=== PATIENT | female | born 1950 | race Hispanic/Latino ===

== ENCOUNTER → 2019-05-17 | Outpatient (CLI) | payer MEDICARE | END | disposition home or self-care (01) | LOC: RAH 11:17 | PROVIDERS: ATTEND Family Medicine | DX: Z12.31 Encounter for screening mammogram for malignant neoplasm of breast (principal) | CPT/HCPCS: 77067 ==

== ENCOUNTER 2020-07-13 12:47 | Inpatient (IN) | payer OTHER, MEDICARE ==
[~2020-07-13] VITALS: Ht 152.4 cm; Wt 93.7 kg
[2020-07-13] MEDS ORDERED: ALBUTEROL INHALER 90MCG/INH IH ONE (13:08)
[2020-07-13] MEDS ORDERED: ACETAMINOPHEN WITH CODEINE 1 TAB TAB ONE (13:09)
[2020-07-13] MEDS ORDERED: CEFTRIAXONE 1G VIAL ONE (13:09)
[2020-07-13 13:10] LABS: ABG BASE EXCESS 2.3 mmol/L (-2.0-3.0); ABG HCO3 24.2 mmol/L (21.0-28.0); ABG OXYGEN SATURATION 85.7 % (95.0-99.0); ABG PCO2 30 mmHg (32-45)
[2020-07-13] MEDS ORDERED: 0.9%NACL 50ML 50 ML IV ONE (13:10)
[2020-07-13] MEDS ORDERED: AZITHROMYCIN 250 MG TABLET PO ONE (13:10)
[2020-07-13 13:28] LABS: BASOPHILS % (AUTO) 0.2 % (0.0-5.0); EOSINOPHILS % (AUTO) 0.2 % (0.0-8.0); HEMATOCRIT 37.3 % (36-48); LYMPHOCYTES % (AUTO) 3.4 % (21.0-51.0); MEAN CORPUSCULAR HGB CONC 35.1 g/dL (32.0-36.0); MEAN CORPUSCULAR VOLUME 85.6 fL (79-99); MONOCYTES % (AUTO) 3.5 % (3.0-13.0); NEUTROPHILS % (AUTO) 92.2 % (40.0-77.0); PLATELET COUNT (AUTO) 280 K/uL (130-400); RED BLOOD CELL COUNT(AUTO) 4.36 MIL/uL (4.00-5.50); RED CELL DISTRIBUTION WIDTH 13.3 % (11.0-15.5); WHITE BLOOD COUNT (AUTO) 9.7 K/uL (4.8-10.8)
[2020-07-13 13:38] LABS: CREATININE 0.8 mg/dL (0.5-1.5); POTASSIUM 3.3 mmol/L (3.5-5.1)
[2020-07-13 13:43] LABS: ALBUMIN 2.3 g/dL (3.5-5.0); BILIRUBIN,TOTAL 0.7 mg/dL (0.2-1.0); TOTAL PROTEIN, SERUM 7.4 g/dL (6.0-8.3)
[2020-07-13] MEDS ORDERED: DEXAMETHASONE SOD PHOSPHATE 10MG/ML 1ML VIAL ONE (13:43)
[2020-07-13 13:53] LABS: INR 1.12 (0.85-1.15); PROTHROMBIN TIME 11.9 SEC (9.6-11.6)
[2020-07-13 13:54] LABS: PARTIAL THROMBOPLASTIN TIME 25.5 SEC (26.3-35.5)
[2020-07-13 14:22] LABS: B-TYPE NATRIURETIC PEPTIDE 78 pg/mL (0-100)
[2020-07-13] MEDS: CEFTRIAXONE 1G VIAL IVP SCH (14:45)
[2020-07-13] MEDS ORDERED: ACETAMINOPHEN 325 MG TAB PO PRN (14:45)
[2020-07-13] MEDS ORDERED: AZITHROMYCIN 500MG+NS 250ML 250 ML IV SCH (14:45)
[2020-07-13] MEDS ORDERED: ONDANSETRON 4MG INJ IVP PRN (14:45)
[2020-07-13] MEDS ORDERED: DEXTROSE 50%-WATER 50 ML DISP.SYRIN IV PRN (15:00)
[2020-07-13] MEDS ORDERED: GLUCAGON 1MG KIT 1 MG ML IM PRN (15:00)
[2020-07-13 15:46] LABS: CRP QUANTITATIVE 353.5 mg/L (0.00-9.0)
[2020-07-13] MEDS: INSULIN HUMULIN R 100 UNIT/ML 3ML SQ SCH ×2 (16:30→21:00)
[2020-07-13 16:33] LABS: APPEARANCE,URINE Clear (CLEAR); BILIRUBIN,URINE Small (NEGATIVE); COLOR,URINE Dark Yellow (YELLOW); GLUCOSE, URINE (UA) TRACE mg/dL (NEGATIVE); KETONES,URINE 40 mg/dL (NEGATIVE); LEUKOCYTE ESTERASE ,URINE Small (NEGATIVE); NITRATE,URINE Negative (NEGATIVE); OCCULT BLOOD,URINE Moderate (NEGATIVE); PROTEIN,URINE POS 2+ mg/dL (NEGATIVE)
[2020-07-13 16:50] LABS: BACTERIA,URINE Few /HPF (None Seen); RBC,URINE None Seen /HPF (0-1)
[2020-07-13 16:51] VITALS: BP 135/78
[2020-07-13] MEDS ORDERED: POTASSIUM CHLORIDE 20MEQ/100ML 100 ML IV PRN (18:00)
[2020-07-13] MEDS ORDERED: KCL 20 MEQ ERTAB PO PRN (18:00)
[2020-07-13] MEDS ORDERED: POTASSIUM CHLORIDE 10% ELIXIR 20 MEQ/15 ML UDCUP PO PRN (18:00)
[2020-07-13] MEDS ORDERED: LIDOCAINE HCL-MPF 1% 2ML VIAL IV PRN (18:00)
[2020-07-13] MEDS ORDERED: INSULIN HUMULIN R 100 UNIT/ML 3ML ONE ×2 (18:14→18:17)
[2020-07-13] MEDS: FAMOTIDINE 20MG TAB PO SCH (21:00)
[2020-07-13] MEDS ORDERED: FAMOTIDINE 20MG TAB ONE (21:16)
[2020-07-13] MEDS ORDERED: PHARMACY COMMUNICATION MISC SCH (21:45)
[2020-07-13] MEDS ORDERED: IOHEXOL 350 MG/ML 100ML INFUS..BTL IV ONE (22:42)
[2020-07-13] MEDS ORDERED: ENOXAPARIN SODIUM 80 MG/0.8 ML SQ ONE (23:32)
[2020-07-14] VITALS (8 sets, daily range): BP systolic 138–157; BP diastolic 58–81
[2020-07-14] MEDS ORDERED: ACETAMINOPHEN 325 MG TAB ONE (00:09)
[2020-07-14] MEDS ORDERED: 0.9% NACL 250ML 250 ML IV ONE (01:17)
[2020-07-14] MEDS ORDERED: KCL 20 MEQ ERTAB PO ONE (01:39)
[2020-07-14 04:03] LABS: BASOPHILS % (AUTO) 0.1 % (0.0-5.0); HEMATOCRIT 32.7 % (36-48); LYMPHOCYTES % (AUTO) 6.6 % (21.0-51.0); MEAN CORPUSCULAR HEMOGLOBIN 29.3 pg (27.0-33.0); MEAN CORPUSCULAR HGB CONC 33.9 g/dL (32.0-36.0); MEAN CORPUSCULAR VOLUME 86.3 fL (79-99); MONOCYTES % (AUTO) 4.6 % (3.0-13.0); NEUTROPHILS % (AUTO) 88.3 % (40.0-77.0); PLATELET COUNT (AUTO) 251 K/uL (130-400); RED BLOOD CELL COUNT(AUTO) 3.79 MIL/uL (4.00-5.50); RED CELL DISTRIBUTION WIDTH 13.2 % (11.0-15.5); WHITE BLOOD COUNT (AUTO) 6.7 K/uL (4.8-10.8)
[2020-07-14 04:19] LABS: ALBUMIN 2.3 g/dL (3.5-5.0); BILIRUBIN,TOTAL 0.4 mg/dL (0.2-1.0); CREATININE 0.7 mg/dL (0.5-1.5)
[2020-07-14 04:28] LABS: CRP QUANTITATIVE 492.7 mg/L (0.00-9.0)
[2020-07-14] MEDS: INSULIN HUMULIN R 100 UNIT/ML 3ML SQ SCH ×4 (06:19→21:03)
[2020-07-14] MEDS ORDERED: REMDESIVIR (EUA) 520 200 MG in 0.9% NACL 250ML 250 ML IV ONE (07:00)
[2020-07-14] MEDS ORDERED: COMPOUND IV REFRIGERATED 1 EACH IVSOLN MISC PRN (07:00)
[2020-07-14] MEDS: FAMOTIDINE 20MG TAB PO SCH ×2 (08:31→19:55)
[2020-07-14] MEDS: ENOXAPARIN SODIUM 80 MG/0.8 ML SQ SCH ×2 (08:32→19:56)
[2020-07-14] MEDS ORDERED: ENOXAPARIN SODIUM 40 MG/0.4 ML SYRINGE SQ SCH (09:00)
[2020-07-14] MEDS ORDERED: ENOXAPARIN SODIUM 30 MG/0.3 ML SQ SCH (09:00)
[2020-07-14] MEDS ORDERED: DEXAMETHASONE SOD PHOSPHATE 4 MG/ML 1ML VIAL IVP SCH ×2 (09:00)
[2020-07-14] MEDS: CEFTRIAXONE 1G VIAL IVP SCH (14:08)
[2020-07-14] MEDS: ENOXAPARIN SODIUM 60 MG/0.6 ML SQ SCH (20:58)
[2020-07-15] VITALS (7 sets, daily range): BP systolic 143–168; BP diastolic 51–94
[2020-07-15] MEDS: REMDESIVIR LABS MISC SCH (05:04)
[2020-07-15] MEDS: INSULIN HUMULIN R 100 UNIT/ML 3ML SQ SCH ×4 (06:00→20:48)
[2020-07-15 06:12] LABS: BASOPHILS % (AUTO) 0.2 % (0.0-5.0); EOSINOPHILS % (AUTO) 0.1 % (0.0-8.0); HEMATOCRIT 35.9 % (36-48); LYMPHOCYTES % (AUTO) 6.7 % (21.0-51.0); MEAN CORPUSCULAR HEMOGLOBIN 29.6 pg (27.0-33.0); MEAN CORPUSCULAR HGB CONC 33.7 g/dL (32.0-36.0); MEAN CORPUSCULAR VOLUME 87.8 fL (79-99); MONOCYTES % (AUTO) 4.7 % (3.0-13.0); NEUTROPHILS % (AUTO) 87.3 % (40.0-77.0); PLATELET COUNT (AUTO) 345 K/uL (130-400); RED BLOOD CELL COUNT(AUTO) 4.09 MIL/uL (4.00-5.50); RED CELL DISTRIBUTION WIDTH 13.2 % (11.0-15.5); WHITE BLOOD COUNT (AUTO) 12.2 K/uL (4.8-10.8)
[2020-07-15 06:39] LABS: ALBUMIN 2.2 g/dL (3.5-5.0); BILIRUBIN,TOTAL 0.2 mg/dL (0.2-1.0); CREATININE 0.7 mg/dL (0.5-1.5); CRP QUANTITATIVE 114.1 mg/L (0.00-9.0); POTASSIUM 3.7 mmol/L (3.5-5.1); TOTAL PROTEIN, SERUM 6.6 g/dL (6.0-8.3)
[2020-07-15] MEDS: DEXAMETHASONE SOD PHOSPHATE 4 MG/ML 1ML VIAL IVP SCH (08:17)
[2020-07-15] MEDS: FAMOTIDINE 20MG TAB PO SCH ×2 (08:17→20:46)
[2020-07-15] MEDS: ENOXAPARIN SODIUM 60 MG/0.6 ML SQ SCH ×2 (08:19→20:47)
[2020-07-15] MEDS ORDERED: ATOR10 PO (09:24)
[2020-07-15] MEDS ORDERED: HYDR12.54 PO (09:24)
[2020-07-15] MEDS ORDERED: LISI5TAB21 PO (09:25)
[2020-07-15] MEDS ORDERED: METF-444 PO (09:26)
[2020-07-15] MEDS: REMDESIVIR (EUA) 520 100 MG in 0.9% NACL 250ML 250 ML IV SCH (12:28)
[2020-07-15] MEDS: GUAIFENESIN-DM 200/20 MG 10 ML PO PRN ×2 (12:41→23:38)
[2020-07-15] MEDS: CEFTRIAXONE 1G VIAL IVP SCH (14:11)
[2020-07-15] MEDS: ATORVASTATIN 20 MG TABLET PO SCH (20:46)
[2020-07-16] VITALS (8 sets, daily range): BP systolic 134–174; BP diastolic 62–78
[2020-07-16] MEDS: INSULIN HUMULIN R 100 UNIT/ML 3ML SQ SCH ×4 (05:16→20:20)
[2020-07-16] MEDS: REMDESIVIR LABS MISC SCH (05:17)
[2020-07-16 06:25] LABS: BASOPHILS % (AUTO) 0.1 % (0.0-5.0); EOSINOPHILS % (AUTO) 0.1 % (0.0-8.0); HEMATOCRIT 36.6 % (36-48); LYMPHOCYTES % (AUTO) 11.1 % (21.0-51.0); MEAN CORPUSCULAR HGB CONC 33.1 g/dL (32.0-36.0); MEAN CORPUSCULAR VOLUME 87.8 fL (79-99); NEUTROPHILS % (AUTO) 81.6 % (40.0-77.0); PLATELET COUNT (AUTO) 333 K/uL (130-400); RED BLOOD CELL COUNT(AUTO) 4.17 MIL/uL (4.00-5.50); RED CELL DISTRIBUTION WIDTH 13.2 % (11.0-15.5); WHITE BLOOD COUNT (AUTO) 8.2 K/uL (4.8-10.8)
[2020-07-16 06:44] LABS: ALBUMIN 2.2 g/dL (3.5-5.0); BILIRUBIN,TOTAL 0.3 mg/dL (0.2-1.0); CREATININE 0.7 mg/dL (0.5-1.5); CRP QUANTITATIVE 55.1 mg/L (0.00-9.0); POTASSIUM 3.3 mmol/L (3.5-5.1); TOTAL PROTEIN, SERUM 6.1 g/dL (6.0-8.3)
[2020-07-16] MEDS ORDERED: POTASSIUM CHLORIDE 10% ELIXIR 20 MEQ/15 ML UDCUP PO PRN (07:45)
[2020-07-16] MEDS ORDERED: KCL 20 MEQ ERTAB PO PRN (07:45)
[2020-07-16] MEDS ORDERED: LIDOCAINE HCL-MPF 1% 2ML VIAL IV PRN (07:45)
[2020-07-16] MEDS ORDERED: POTASSIUM CHLORIDE 20MEQ/100ML 100 ML IV PRN (07:45)
[2020-07-16] MEDS: LISINOPRIL 5 MG TABLET PO SCH (08:08)
[2020-07-16] MEDS: ENOXAPARIN SODIUM 100 MG/1 ML SQ SCH ×2 (08:08→20:18)
[2020-07-16] MEDS: HYDROCHLOROTHIAZIDE 25 MG TABLET PO SCH (08:08)
[2020-07-16] MEDS: DEXAMETHASONE SOD PHOSPHATE 4 MG/ML 1ML VIAL IVP SCH (08:08)
[2020-07-16] MEDS: FAMOTIDINE 20MG TAB PO SCH ×2 (08:08→20:18)
[2020-07-16] MEDS: REMDESIVIR (EUA) 520 100 MG in 0.9% NACL 250ML 250 ML IV SCH (13:20)
[2020-07-16] MEDS: CEFTRIAXONE 1G VIAL IVP SCH (15:08)
[2020-07-16] MEDS: ATORVASTATIN 20 MG TABLET PO SCH (20:18)
[2020-07-16] MEDS: GUAIFENESIN-DM 200/20 MG 10 ML PO PRN (20:23)
[2020-07-17] VITALS (8 sets, daily range): BP systolic 137–198; BP diastolic 66–91
[2020-07-17] MEDS: GUAIFENESIN-DM 200/20 MG 10 ML PO PRN ×2 (03:49→20:41)
[2020-07-17] MEDS: REMDESIVIR LABS MISC SCH (05:00)
[2020-07-17] MEDS: INSULIN HUMULIN R 100 UNIT/ML 3ML SQ SCH ×4 (06:33→22:19)
[2020-07-17 06:34] LABS: HEMATOCRIT 39.2 % (36-48); MEAN CORPUSCULAR HEMOGLOBIN 29.3 pg (27.0-33.0); MEAN CORPUSCULAR HGB CONC 33.4 g/dL (32.0-36.0); MEAN CORPUSCULAR VOLUME 87.7 fL (79-99); RED BLOOD CELL COUNT(AUTO) 4.47 MIL/uL (4.00-5.50); WHITE BLOOD COUNT (AUTO) 8.2 K/uL (4.8-10.8)
[2020-07-17 06:48] LABS: ALBUMIN 2.4 g/dL (3.5-5.0); BILIRUBIN,TOTAL 0.3 mg/dL (0.2-1.0); CREATININE 0.7 mg/dL (0.5-1.5); CRP QUANTITATIVE 35.7 mg/L (0.00-9.0); TOTAL PROTEIN, SERUM 6.2 g/dL (6.0-8.3)
[2020-07-17] MEDS: DEXAMETHASONE SOD PHOSPHATE 4 MG/ML 1ML VIAL IVP SCH (10:09)
[2020-07-17] MEDS: LISINOPRIL 5 MG TABLET PO SCH (10:10)
[2020-07-17] MEDS: HYDROCHLOROTHIAZIDE 25 MG TABLET PO SCH (10:10)
[2020-07-17] MEDS: FAMOTIDINE 20MG TAB PO SCH ×2 (10:11→20:37)
[2020-07-17] MEDS: ENOXAPARIN SODIUM 100 MG/1 ML SQ SCH (10:13)
[2020-07-17] MEDS: REMDESIVIR (EUA) 520 100 MG in 0.9% NACL 250ML 250 ML IV SCH (13:28)
[2020-07-17] MEDS: CEFTRIAXONE 1G VIAL IVP SCH (15:18)
[2020-07-17] MEDS: ATORVASTATIN 20 MG TABLET PO SCH (20:37)
[2020-07-17] MEDS ORDERED: LABETALOL 20MG SYG IV PRN (22:00)
[2020-07-18] VITALS: BP 141/75
[2020-07-18 04:38] VITALS: BP 138/61
[2020-07-18] MEDS: INSULIN HUMULIN R 100 UNIT/ML 3ML SQ SCH ×4 (06:00→21:03)
[2020-07-18] MEDS: REMDESIVIR LABS MISC SCH (06:00)
[2020-07-18 06:18] LABS: ALBUMIN 2.4 g/dL (3.5-5.0); BILIRUBIN,TOTAL 0.2 mg/dL (0.2-1.0); CREATININE 0.7 mg/dL (0.5-1.5); TOTAL PROTEIN, SERUM 6.2 g/dL (6.0-8.3)
[2020-07-18] MEDS: DEXAMETHASONE SOD PHOSPHATE 4 MG/ML 1ML VIAL IVP SCH (08:06)
[2020-07-18] MEDS: LISINOPRIL 5 MG TABLET PO SCH (08:07)
[2020-07-18] MEDS: FAMOTIDINE 20MG TAB PO SCH (08:07)
[2020-07-18] MEDS: HYDROCHLOROTHIAZIDE 25 MG TABLET PO SCH (08:10)
[2020-07-18 08:23] VITALS: BP 142/65
[2020-07-18] MEDS: GUAIFENESIN-DM 200/20 MG 10 ML PO PRN ×2 (08:44→20:24)
[2020-07-18] MEDS ORDERED: ENOXAPARIN SODIUM 60 MG/0.6 ML SQ SCH (09:00)
[2020-07-18] MEDS ORDERED: ENOXAPARIN SODIUM 40 MG/0.4 ML SYRINGE SQ SCH (09:00)
[2020-07-18] MEDS ORDERED: ENOXAPARIN SODIUM 0.5 MG/KG EACH SQ SCH (09:00)
[2020-07-18 12:08] VITALS: BP 146/76
[2020-07-18] MEDS: REMDESIVIR (EUA) 520 100 MG in 0.9% NACL 250ML 250 ML IV SCH (13:23)
[2020-07-18 16:48] VITALS: BP 182/89
[2020-07-18 20:03] VITALS: BP 164/71
[2020-07-18] MEDS: ATORVASTATIN 20 MG TABLET PO SCH (20:23)
[2020-07-18] MEDS: APIXABAN 2.5 MG TABLET PO SCH (20:24)
[2020-07-19 00:14] VITALS: BP 156/73
[2020-07-19 04:20] VITALS: BP 132/67
[2020-07-19 04:48] LABS: BASOPHILS % (AUTO) 0.3 % (0.0-5.0); EOSINOPHILS % (AUTO) 0.9 % (0.0-8.0); HEMATOCRIT 37.4 % (36-48); LYMPHOCYTES % (AUTO) 13.8 % (21.0-51.0); MEAN CORPUSCULAR HEMOGLOBIN 29.7 pg (27.0-33.0); MEAN CORPUSCULAR VOLUME 87.6 fL (79-99); MONOCYTES % (AUTO) 7.5 % (3.0-13.0); NEUTROPHILS % (AUTO) 76.1 % (40.0-77.0); PLATELET COUNT (AUTO) 366 K/uL (130-400); RED BLOOD CELL COUNT(AUTO) 4.27 MIL/uL (4.00-5.50); RED CELL DISTRIBUTION WIDTH 13.2 % (11.0-15.5)
[2020-07-19 04:58] LABS: CREATININE 0.7 mg/dL (0.5-1.5); POTASSIUM 4.4 mmol/L (3.5-5.1)
[2020-07-19] MEDS: REMDESIVIR LABS MISC SCH (06:00)
[2020-07-19] MEDS: INSULIN HUMULIN R 100 UNIT/ML 3ML SQ SCH ×3 (07:30→21:14)
[2020-07-19 08:25] VITALS: BP 143/65
[2020-07-19] MEDS: DEXAMETHASONE 4 MG TAB PO SCH (09:12)
[2020-07-19] MEDS: LISINOPRIL 5 MG TABLET PO SCH (09:13)
[2020-07-19] MEDS: HYDROCHLOROTHIAZIDE 25 MG TABLET PO SCH (09:13)
[2020-07-19] MEDS: APIXABAN 2.5 MG TABLET PO SCH ×2 (09:13→19:49)
[2020-07-19 12:20] VITALS: BP 141/69
[2020-07-19 16:00] VITALS: BP 129/74
[2020-07-19] MEDS: LACTULOSE 20 GM/30 ML UDCUP PO PRN (16:26)
[2020-07-19] MEDS: ATORVASTATIN 20 MG TABLET PO SCH (19:49)
[2020-07-19 20:05] VITALS: BP 128/73
[2020-07-19] MEDS: GUAIFENESIN-DM 200/20 MG 10 ML PO PRN (21:17)
[2020-07-20 00:14] VITALS: BP 115/69
[2020-07-20 04:09] VITALS: BP 136/70
[2020-07-20 04:41] LABS: BASOPHILS % (AUTO) 0.1 % (0.0-5.0); EOSINOPHILS % (AUTO) 0.3 % (0.0-8.0); HEMATOCRIT 41.3 % (36-48); LYMPHOCYTES % (AUTO) 11.2 % (21.0-51.0); MEAN CORPUSCULAR HEMOGLOBIN 29.1 pg (27.0-33.0); MEAN CORPUSCULAR HGB CONC 33.2 g/dL (32.0-36.0); MEAN CORPUSCULAR VOLUME 87.7 fL (79-99); PLATELET COUNT (AUTO) 416 K/uL (130-400); RED BLOOD CELL COUNT(AUTO) 4.71 MIL/uL (4.00-5.50); RED CELL DISTRIBUTION WIDTH 13.4 % (11.0-15.5); WHITE BLOOD COUNT (AUTO) 9.9 K/uL (4.8-10.8)
[2020-07-20 05:27] LABS: CREATININE 0.8 mg/dL (0.5-1.5); POTASSIUM 4.1 mmol/L (3.5-5.1)
[2020-07-20] MEDS: INSULIN HUMULIN R 100 UNIT/ML 3ML SQ SCH ×3 (06:52→16:30)
[2020-07-20 08:25] VITALS: BP 134/59
[2020-07-20] MEDS ORDERED: POLYETHYLENE GLYCOL 3350 17 GM POWD.PACK PO SCH (09:00)
[2020-07-20] MEDS: HYDROCHLOROTHIAZIDE 25 MG TABLET PO SCH (09:49)
[2020-07-20] MEDS: DEXAMETHASONE 4 MG TAB PO SCH (09:49)
[2020-07-20] MEDS: APIXABAN 2.5 MG TABLET PO SCH ×2 (09:49→17:01)
[2020-07-20] MEDS: LACTULOSE 20 GM/30 ML UDCUP PO PRN (09:52)
[2020-07-20] MEDS: LISINOPRIL 5 MG TABLET PO SCH (09:52)
[2020-07-20 12:10] VITALS: BP 117/64
[2020-07-20 19:54] VITALS: BP 144/86
== END 2020-07-20 20:50 | DRG 177 ==
LOC: EDH 12:47 → EDHIP 14:42 → 4BH 07-14 01:40
PROVIDERS: ADMIT Family Medicine; ATTEND Family Medicine
PROC: XW033E5 Introduction of Remdesivir Anti-infective into Peripheral Vein, Percutaneous Approach, New Technology Group 5 (ICD-10-PCS; principal; 2020-07-14)
PROC: XW13325 Transfusion of Convalescent Plasma (Nonautologous) into Peripheral Vein, Percutaneous Approach, New Technology Group 5 (ICD-10-PCS; 2020-07-14)
DX: U07.1 COVID-19 (principal); J96.01 Acute respiratory failure with hypoxia; J12.82 Pneumonia due to coronavirus disease 2019; N39.0 Urinary tract infection, site not specified; E87.6 Hypokalemia; E03.9 Hypothyroidism, unspecified; E66.01 Morbid (severe) obesity due to excess calories; E11.9 Type 2 diabetes mellitus without complications; I10 Essential (primary) hypertension; Z90.710 Acquired absence of both cervix and uterus; Z68.32 Body mass index [BMI] 32.0-32.9, adult; Z85.43 Personal history of malignant neoplasm of ovary; Z90.49 Acquired absence of other specified parts of digestive tract
CPT/HCPCS: 36415; 36430; 36600; 71045; 71275; 80048; 80053; 81001; 82550; 82728; 82803; 82948; 83615; 83880; 84145; 84484; 85025; 85027; 85378; 85610; 85730; 86140; 86156; 86850; 86870; 86900; 86901; 87040; 87088; 87426; 87449; 87804; 93005; 93970; 94760; G0378; J0696; J1100; J1650; J1815; J7050; J8540; Q9967; U0003

== ENCOUNTER → 2020-09-13 | Outpatient (CLI) | payer OTHER, MEDICARE ==
[~2020-09-13] MED LIST: ATOR10 PO; HYDR12.54 PO; LISI-809 PO; METF-444 PO
== END | disposition home or self-care (01) ==
LOC: RAH 12:05
PROVIDERS: ATTEND Family Medicine
DX: Z12.31 Encounter for screening mammogram for malignant neoplasm of breast (principal)
CPT/HCPCS: 77067

== ENCOUNTER 2021-09-27 09:31 | Emergency (ER) | payer OTHER, MEDICARE ==
[~2021-09-27] VITALS: Ht 157.5 cm; Wt 92.1 kg
[~2021-09-27 09:31] MED LIST changes: -LISI-809 PO; +LISI5TAB21 PO
[2021-09-27 09:50] LABS: BASOPHILS % (AUTO) 0.2 % (0.0-5.0); EOSINOPHILS % (AUTO) 0.1 % (0.0-8.0); HEMATOCRIT 41.3 % (36-48); LYMPHOCYTES % (AUTO) 5.6 % (21.0-51.0); MEAN CORPUSCULAR HGB CONC 34.4 g/dL (32.0-36.0); MEAN CORPUSCULAR VOLUME 87.3 fL (79-99); MONOCYTES % (AUTO) 3.9 % (3.0-13.0); NEUTROPHILS % (AUTO) 89.8 % (40.0-77.0); PLATELET COUNT (AUTO) 342 K/uL (130-400); RED BLOOD CELL COUNT(AUTO) 4.73 MIL/uL (4.00-5.50); RED CELL DISTRIBUTION WIDTH 13.8 % (11.0-15.5); WHITE BLOOD COUNT (AUTO) 14.9 K/uL (4.8-10.8)
[2021-09-27 10:02] LABS: POTASSIUM 3.2 mmol/L (3.5-5.1)
[2021-09-27 10:05] LABS: ALBUMIN 3.6 g/dL (3.5-5.0); BILIRUBIN,TOTAL 0.5 mg/dL (0.2-1.0); TOTAL PROTEIN, SERUM 7.2 g/dL (6.0-8.3)
[2021-09-27] MEDS ORDERED: KETOROLAC 15MG/ML VIAL (15MG/ML) ONE (10:07)
[2021-09-27] MEDS ORDERED: 0.9%NACL 1000ML 1,000 ML IV ONE ×2 (10:07→10:30)
[2021-09-27] MEDS ORDERED: ONDANSETRON 4MG INJ ONE (10:07)
[2021-09-27 10:14] LABS: APPEARANCE,URINE SL CLOUDY (CLEAR); BILIRUBIN,URINE SMALL (NEGATIVE); COLOR,URINE YELLOW (YELLOW); GLUCOSE, URINE (UA) NEGATIVE (NEGATIVE); KETONES,URINE 15 mg/dL (NEGATIVE); LEUKOCYTE ESTERASE ,URINE NEGATIVE (NEGATIVE); NITRATE,URINE NEGATIVE (NEGATIVE); OCCULT BLOOD,URINE TRACE-INTACT (NEGATIVE); PH,URINE 5.5 (5.0-8.0); PROTEIN,URINE TRACE mg/dL (NEGATIVE); UROBILINOGEN,URINE 0.2 mg/dL (0.2-1.0)
[2021-09-27] MEDS ORDERED: KETOROLAC 15MG/ML VIAL (15MG/ML) IV ONE (10:30)
[2021-09-27] MEDS ORDERED: ONDANSETRON 4MG INJ IVP ONE (10:30)
[2021-09-27 10:35] VITALS: BP 125/59
[2021-09-27 10:43] LABS: BACTERIA,URINE Moderate /HPF (None Seen); RBC,URINE 0-1 /HPF (0-1); SQUAMOUS EPITHELIAL CELL,UR 30-50 /HPF (0-2); WBC,URINE 0-1 /HPF (0-1)
[2021-09-27] MEDS ORDERED: HYDROCODONE/ACETAMINOPHEN 5/325 MG TAB PO SCH (12:00)
[2021-09-27] MEDS ORDERED: ONDA4TAB10 PO (12:03)
[2021-09-27] MEDS ORDERED: ACET-2079 PO (12:03)
[2021-09-27] MEDS ORDERED: HYDROCODONE/ACETAMINOPHEN 5/325 MG TAB ONE (12:07)
== END 2021-09-27 12:23 | disposition home or self-care (01) ==
LOC: EDH 09:31
DX: K52.9 Noninfective gastroenteritis and colitis, unspecified (principal); E86.9 Volume depletion, unspecified; R51.9 Headache, unspecified; Z20.822 Contact with and (suspected) exposure to COVID-19; I10 Essential (primary) hypertension; E11.9 Type 2 diabetes mellitus without complications; E78.00 Pure hypercholesterolemia, unspecified; Z79.1 Long term (current) use of non-steroidal anti-inflammatories (NSAID); Z79.84 Long term (current) use of oral hypoglycemic drugs; Z79.899 Other long term (current) drug therapy; Z90.49 Acquired absence of other specified parts of digestive tract
CPT/HCPCS: 36415; 71045; 80053; 81001; 82550; 84484; 85025; 87088; 87635; 87804 ×2; 93005; 96361; 96374; 96375; 99285; C9803; J1885; J2405; J7030

== ENCOUNTER → 2022-08-15 | Outpatient (CLI) | payer OTHER, MEDICARE ==
[~2022-08-15] MED LIST changes: +ACET-2079 PO; +ONDA4TAB10 PO
[2022-08-15 11:34] LABS: BASOPHILS % (AUTO) 0.4 % (0.0-5.0); EOSINOPHILS % (AUTO) 0.7 % (0.0-8.0); HEMATOCRIT 39.7 % (36-48); LYMPHOCYTES % (AUTO) 14.8 % (21.0-51.0); MEAN CORPUSCULAR HEMOGLOBIN 27.3 pg (27.0-33.0); MEAN CORPUSCULAR HGB CONC 31.5 g/dL (32.0-36.0); MEAN CORPUSCULAR VOLUME 86.7 fL (79-99); MONOCYTES % (AUTO) 4.8 % (3.0-13.0); NEUTROPHILS % (AUTO) 79.1 % (40.0-77.0); PLATELET COUNT (AUTO) 307 K/uL (130-400); RED BLOOD CELL COUNT(AUTO) 4.58 MIL/uL (4.00-5.50); RED CELL DISTRIBUTION WIDTH 13.6 % (11.0-15.5); WHITE BLOOD COUNT (AUTO) 9.5 K/uL (4.8-10.8)
[2022-08-15 11:49] LABS: ALBUMIN 3.5 g/dL (3.5-5.0); CREATININE 0.8 mg/dL (0.5-1.5); POTASSIUM 4.3 mmol/L (3.5-5.1); TOTAL PROTEIN, SERUM 7.4 g/dL (6.0-8.3)
== END | disposition home or self-care (01) ==
LOC: LAB 10:49
PROVIDERS: ATTEND Internal Medicine Gastroenterology
DX: C18.2 Malignant neoplasm of ascending colon (principal)
CPT/HCPCS: 36415; 80053; 82378; 85025

== ENCOUNTER → 2022-08-20 | Outpatient (CLI) | payer OTHER, MEDICARE ==
[~2022-08-20] MED LIST changes: +IOHEXOL 350 MG/ML 100ML INFUS..BTL IV ONE
== END | disposition home or self-care (01) ==
LOC: RAH 07:50
PROVIDERS: ATTEND Internal Medicine Gastroenterology
DX: C18.2 Malignant neoplasm of ascending colon (principal); Z90.49 Acquired absence of other specified parts of digestive tract
CPT/HCPCS: 71260; 74178; Q9967

== ENCOUNTER → 2023-01-16 | Outpatient (CLI) | payer OTHER, MEDICARE ==
[~2023-01-16] MED LIST changes: -IOHEXOL 350 MG/ML 100ML INFUS..BTL IV ONE
== END | disposition home or self-care (01) ==
LOC: SHCH 07:32
PROVIDERS: ATTEND Student in an Organized Health Care Education/Training Program
DX: R06.02 Shortness of breath (principal)
CPT/HCPCS: 93306

== ENCOUNTER → 2023-11-12 | Outpatient (CLI) | payer OTHER, MEDICARE | END | disposition home or self-care (01) | LOC: RAH 08:02 | PROVIDERS: ATTEND Family Medicine | DX: Z12.31 Encounter for screening mammogram for malignant neoplasm of breast (principal); R92.323 Mammographic fibroglandular density, bilateral breasts | CPT/HCPCS: 77067 ==

== ENCOUNTER → 2024-12-02 | Outpatient (CLI) | payer OTHER, MEDICARE ==
[~2024-12-02] MED LIST changes: +ONDA-243 PO; -ONDA4TAB10 PO
--- NOTE | 2024-12-02 08:33 | HMCIMG ---
Exam Type: MAMMO SCREENING BILATERAL Clinical Information: ANNUAL SCREENING Comparison: November 12, 2023 Technique: Mammogram with CAD was performed with CC and MLO projections. CAD shows no worrisome regions. FINDINGS: There are scattered areas of fibroglandular density. No dominant mass or suspicious microcalcification identified. There is no nipple retraction or skin thickening. Benign-appearing calcifications are seen. CAD shows no worrisome regions. IMPRESSION: 1. No mammographic signs of malignancy. 2. Routine follow-up recommended. CATEGORY 2: BENIGN FINDINGS Note: A negative x-ray should not delay biopsy if a dominant or clinically suspicious mass is present, since 8-10% of cancers are not identified by mammography. Dense breasts may obscure an underlying neoplasm.
== END | disposition home or self-care (01) ==
LOC: RAH 07:26
PROVIDERS: ATTEND Family Medicine
DX: Z12.31 Encounter for screening mammogram for malignant neoplasm of breast (principal); R92.333 Mammographic heterogeneous density, bilateral breasts
CPT/HCPCS: 77067